=== PATIENT | male | born 1990 | race Caucasian/White ===

== ENCOUNTER 2017-02-20 17:15 | Emergency (ER) | payer SELFPAY ==
[~2017-02-20] VITALS: Ht 185.4 cm; Wt 99.3 kg
[~2017-02-20 17:15] MED LIST: MULTI-DAY VITA1 EACH PO; NAPROXEN500 MG PO; NOHOMEMEDS; VICODIN,LORT1 TABLET PO
[2017-02-20 18:46] LABS: HEMATOCRIT 42.4 % (38.0-50.0); MCH 28.3 PG (29.0-34.0); MCHC 32.8 G/DL (30.0-36.0); MCV 86.4 FL (86-99); MEAN PLAT.VOLUME 10.2 uM^3 (9.0-12.4); PLATELET COUNT 215 K/uL (156-360); RBC DIS.WIDTH-CV 12.8 % (11.8-14.6); RBC DIS.WIDTH-SD 40.4 % (39-53); RED BLOOD COUNT 4.91 M/uL (4.00-5.50); WHITE BLOOD COUNT 8.7 K/uL (4.1-10.2)
[2017-02-20 18:54] LABS: CHLORIDE 106 mEq/L (99-109); POTASSIUM 4.4 mEq/L (3.7-5.4); SODIUM 138 mEq/L (136-147)
[2017-02-20 18:56] LABS: GLUCOSE 97 mg/dL (70-99)
[2017-02-20 18:57] LABS: ANION GAP 6 MEQ/L (2-14)
[2017-02-20 18:59] LABS: GFR ESTIMATE (CALCULATED) > 59 mL/min/
[2017-02-20 19:00] LABS: UREA NITROGEN (BUN) 12 mg/dL (9-23)
[2017-02-20] MEDS ORDERED: MECLIZINE HCL25 MG PO (19:34)
[2017-02-20 19:54] VITALS: BP 131/87
== END 2017-02-20 19:56 | disposition home or self-care (01) ==
LOC: EME 17:15
PROVIDERS: Physician Assistant
DX: R42 Dizziness and giddiness (principal); F17.200 Nicotine dependence, unspecified, uncomplicated
CPT/HCPCS: 80048; 85027; 93005; 99281; 99285